=== PATIENT | male | born 2000 | race Caucasian/White ===

== ENCOUNTER 2022-01-20 19:41 | Emergency (ER) | payer SELFPAY ==
[2022-01-20 19:48] VITALS: BP 130/69; PULSE 75; RESP 20; TEMP 37.1; O2SAT 100
--- NOTE | 2022-01-20 20:10 | ED.DENTAL ---
HPI - Dental/Oral General Chief complaint: Dental/Oral Stated complaint: gum abcess Time Seen by Provider: 01/20/22 20:00 Source: patient Mode of arrival: ambulatory Limitations: no limitations History of Present Illness HPI Narrative: Mr. Chapin is a 22-year-old male patient presenting to the clinic today with possible dental abscess to his gum. He reports that he first noticed this today and became worried. He denies any pain or discharge. Denies any fever or chills. Related Data Home Medications Medication Instructions Recorded Confirmed No Home Medications 01/20/22 01/20/22 Allergies Allergy/AdvReac Type Severity Reaction Status Date / Time No Known Allergies Allergy Verified 01/20/22 20:16 Review of Systems Review of Systems: Pertinent positives per HPI. Patient denies any fever, chills, rash, headache, visual changes, dizziness, cough, runny nose, sore throat, shortness of breath, chest pain, palpitations, nausea, vomiting, diarrhea, constipation, abdominal pain, or any urinary issues. PMFSH Comments At the time of my signature, I reviewed and agree with the nursing past medical, surgical, social, and family history. There is no relevant family history pertinent to the patient complaint. Exam Narrative: General: Well-developed, well nourished, in no apparent distress Head: Normocephalic, atraumatic Eyes: Pupils equally round and reactive to light bilaterally, EOM intact, sclera and conjunctive clear, no discharge, lids normal Ears: TMs intact and clear, ear canals clear, no drainage, grossly hearing normal. Nose: Nares patent, no discharge, no inflammation, no sinus tenderness. Mouth: Oropharynx without lesions or masses, good dentition, MMM. Neck: Supple, trachea midline, no enlargement of anterior or posterior cervical nodes, no thyroid masses or goiter palpable. Cardio: Regular rate and rhythm, s1 and s2 normal, no murmur appreciated. Resp: Clear to auscultation bilaterally anteriorly and posteriorly, no rhonchi, rales, wheezing or rubs Course Course Emergency Course: Portions of this record may have been created with voice recognition software. Level of Care: Express Care Visit Vital Signs Vital signs: Vital Signs Temperature 37.1 C 01/20/22 19:48 Pulse Rate 75 01/20/22 19:48 Respiratory Rate 20 01/20/22 19:48 Blood Pressure 130/69 01/20/22 19:48 Pulse Oximetry 100 01/20/22 19:48 Oxygen Delivery Room Air 01/20/22 19:48 Temperature 37.1 C 01/20/22 19:48 Pulse Rate 75 01/20/22 19:48 Respiratory Rate 20 01/20/22 19:48 Blood Pressure 130/69 01/20/22 19:48 Pulse Oximetry 100 01/20/22 19:48 Oxygen Delivery Room Air 01/20/22 19:48 Vital signs reviewed MDM - Dental/Oral MDM Narrative Medical decision making narrative: At the time of assessment area of concern appears to be just a connective tissue/fibrous ligament. There is no palpable abscess. Supportive care given to the patient he voiced understanding of discharge instructions. Differential Diagnosis Differential diagnosis: Likely gingival abscess, dental caries, toothache and dental abscess Discharge Plan Discharge Clinical Impression: Normal oral exam Patient Disposition: Home, Self-Care Condition: Stable Instructions: Mouth Care (ED) Additional Instructions: Follow-up with dentist as discussed Follow-up/Referrals: PHYSICIAN,FLEET MAINTENANCE MANAGER [Primary Care Provider] - Time of Disposition: 20:16 Quality NIHSS Nursing Documentation ED NIHSS nursing documentation: reviewed/agree
== END 2022-01-20 20:20 | disposition home or self-care (01) ==
PROVIDERS: Emergency Provider Nurse Practitioner Family
DX: Z71.1 Person with feared health complaint in whom no diagnosis is made (principal)
CPT/HCPCS: 99211; G0463

== ENCOUNTER 2022-06-07 17:06 | Emergency (ER) | payer SELFPAY ==
[2022-06-07 17:11] VITALS: BP 123/62; PULSE 89; RESP 16; TEMP 37.6; O2SAT 100
--- NOTE | 2022-06-07 17:49 | ED.SKABFB ---
HPI - Skin/Abscess/Foreign Bdy General Chief complaint: Skin/Abscess/Foreign Body Stated complaint: Skin Problem Time Seen by Provider: 06/07/22 17:55 Source: patient Mode of arrival: ambulatory Limitations: no limitations History of Present Illness HPI narrative: 22 y/o male presented for c/o lump to left upper abdomen for one month. Denies increase in size or pain. Denies trauma. States it is the size of a pea and feels like it should not be there. Denies pain with exertion or activity. Denies associated n/v/d/f/c. Does not have PCP. Related Data Home Medications Medication Instructions Recorded Confirmed No Home Medications 01/20/22 06/07/22 Allergies Allergy/AdvReac Type Severity Reaction Status Date / Time No Known Allergies Allergy Verified 06/07/22 17:18 Review of Systems Review of Systems: CONSTITUTIONAL: Denies body aches, fever, chills, or sweats. EYES: Denies visual changes, redness, or discharge. CARDIOVASCULAR: Denies chest pain, palpitations, or edema. RESPIRATORY: Denies cough or dyspnea. GASTROINTESTINAL: Denies abdominal pain, nausea, vomiting, or diarrhea. SKIN: lump to upper left abdomen MUSCULOSKELETAL: Denies back pain, joint pain, or myalgia. NEUROLOGIC: Denies headache, numbness, tingling, or weakness. PMFSH Comments At time of signature, I have reviewed and agree with nursing past medical, surgical, social and family history unless otherwise noted. Please see nursing chart for further information. There is no relevant family history pertinent to the presenting complaint Exam Narrative: GENERAL: Well-appearing HEAD: Normocephalic, atraumatic. EYES: conjunctivae clear, and EOMI. ENT: Mucous membranes moist. Oropharynx without edema, erythema or lesions. CHEST: Clear to auscultation. HEART: Regular rate and rhythm. SKIN: Warm, dry. Left upper abdominal wall with approx 0.5cm diameter subcutaneous firm nodule, nontender, no redness/bruising. No Fluctuance or induration. NEURO: Alert and oriented x3. Course Course Emergency Course: Patient is aware of diagnosis, understands and agrees to treatment plan. Anticipatory guidance given. Patient agrees to follow-up as directed and is aware of reasons to seek care at the emergency department. Portions of this record may have been created with voice recognition software Level of Care: [facility] Visit Vital Signs Vital signs: Vital Signs Temperature 99.7 F H 06/07/22 17:11 Pulse Rate 89 06/07/22 17:11 Respiratory Rate 16 06/07/22 17:11 Blood Pressure 123/62 06/07/22 17:11 Pulse Oximetry 100 06/07/22 17:11 Oxygen Delivery Room Air 06/07/22 17:11 Temperature 99.7 F H 06/07/22 17:11 Pulse Rate 89 06/07/22 17:11 Respiratory Rate 16 06/07/22 17:11 Blood Pressure 123/62 06/07/22 17:11 Pulse Oximetry 100 06/07/22 17:11 Oxygen Delivery Room Air 06/07/22 17:11 Reviewed MDM - Skin/Abscess/Foreign Bdy MDM Narrative Medical decision making narrative: Advised supportive measures and signs/symptoms to go to the ER. Pt is appropriate for outpt treatment and f/u. Instructed patient to go to nearest ER immediately for any worsening symptoms including but not limited to: fever, abdominal pain, chest pain, trouble breathing, or any symptoms concerning to the patient. Differential Diagnosis Differential diagnosis: Likely abscess of skin or subcutaneous tissue, urticaria, herpes zoster, cellulitis and contact dermatitis Discharge Plan Discharge Clinical Impression: Subcutaneous nodule of abdominal wall Patient Disposition: Home, Self-Care Condition: Stable Additional Instructions: Continue to monitor the site. Establish and Follow up with a primary care provider as needed in 1-2 weeks Go to the ER for worsening symptoms or concerns Prescriptions: No Action No Home Medications Follow-up/Referrals: PHYSICIAN,CRIMINAL JUSTICE TEACHER [Primary Care Provider] - Time of Dispositio
== END 2022-06-07 17:57 | disposition home or self-care (01) ==
PROVIDERS: Emergency Provider Nurse Practitioner Family
DX: R22.2 Localized swelling, mass and lump, trunk (principal)
CPT/HCPCS: 99211; G0463